=== PATIENT | male | born 1955 | race Two or more races ===

== ENCOUNTER 2020-05-06 10:30 | Inpatient (IN) | payer OTHER ==
[~2020-05-06] VITALS: Ht 182.9 cm; Wt 95.3 kg
[2020-05-06] MEDS ORDERED: COZAAR100 MG PO (12:03)
[2020-05-19] MEDS ORDERED: OXYC1TAB9 PO (10:54)
== END 2020-05-19 11:10 | disposition home or self-care (01) | DRG 330 ==
LOC: O/R 05-12 08:26 → EDSEX 05-12 08:26 → SURG 05-12 08:26 → SURH 05-12 10:00 → SURG 05-12 19:33
PROVIDERS: ADMIT Surgery; ATTEND Surgery
PROC: 07TB4ZZ Resection of Mesenteric Lymphatic, Percutaneous Endoscopic Approach (ICD-10-PCS; 2020-05-12)
PROC: 0DTN4ZZ Resection of Sigmoid Colon, Percutaneous Endoscopic Approach (ICD-10-PCS; principal; 2020-05-12 10:00)
DX: C20 Malignant neoplasm of rectum (principal); K56.7 Ileus, unspecified; K63.89 Other specified diseases of intestine; R59.0 Localized enlarged lymph nodes; I11.9 Hypertensive heart disease without heart failure; G47.09 Other insomnia

== ENCOUNTER → 2021-03-03 | Day surgery (SDC) | payer OTHER ==
[~2021-03-03] MED LIST: COZAAR100 MG PO; OXYC1TAB9 PO
== END | disposition home or self-care (01) ==
LOC: ADM 02-26 14:00 → AMB-ENDOS 12:53
PROVIDERS: ATTEND Surgery
DX: K62.89 Other specified diseases of anus and rectum (principal); Z20.822 Contact with and (suspected) exposure to COVID-19

== ENCOUNTER 2021-09-02 12:00 | Inpatient (IN) | payer OTHER ==
[~2021-09-02] VITALS: Ht 182.9 cm; Wt 95.3 kg
[2021-09-07] MEDS ORDERED: ONDANSETRON HCL8 MG (10:39)
[2021-09-07] MEDS ORDERED: FAMOTIDINE20 MG (10:39)
[2021-09-07] MEDS ORDERED: DOXAZOSIN MESYLA2 MG (10:39)
[2021-09-08] MEDS ORDERED: OXYC1TAB9 PO (14:01)
[2021-09-08] MEDS ORDERED: DICLOFENAC SODI75 MG PO (14:02)
== END 2021-09-08 22:58 | disposition home or self-care (01) | DRG 337 ==
LOC: ADM 12:00 → EDSTATUS 12:00 → O/R 09-07 07:52 → SURH 09-07 07:52
PROVIDERS: ADMIT Surgery; ATTEND Surgery
PROC: 0DNE4ZZ Release Large Intestine, Percutaneous Endoscopic Approach (ICD-10-PCS; principal; 2021-09-07 11:45)
DX: C19 Malignant neoplasm of rectosigmoid junction (principal); K66.0 Peritoneal adhesions (postprocedural) (postinfection); Z53.9 Procedure and treatment not carried out, unspecified reason; I11.9 Hypertensive heart disease without heart failure